=== PATIENT | male | born 1940 | race Caucasian/White ===

== ENCOUNTER → 2021-08-26 06:23 | Outpatient (CLI) | payer MEDICARE, OTHER, SELFPAY ==
--- NOTE | 2021-08-26 | DI.MRI.S_ITS ---
PROCEDURE: MR SHOULDER LT WO CON INDICATIONS: BILATERAL SHOULDER PAIN TECHNIQUE: Noncontrast oblique coronal T2 fast spin echo with fat saturation, oblique sagittal T1 spin echo and T2 fast spin echo with fat saturation, axial T1 spin echo and T2 fast spin echo with fat saturation through the shoulder. COMPARISON: [facility], MR, MR SHOULDER RT WO CON, 08/26/2021, 7:07. [facility] [place], CR, XR SHOULDER 2+ VIEWS BILATERAL, 08/18/2021, 13:54. FINDINGS: Image quality: Excellent. Rotator cuff: Tendinosis and moderate grade articular and bursal surface partial thickness tear involving distal supraspinatus and infraspinatus at their insertion on the humeral head is seen extending to musculotendinous junction. Distal subscapularis tendinosis is also noted. No full-thickness rotator cuff tendon rupture. Sagittal images demonstrate mild to moderate supraspinatus and infraspinatus muscle atrophy. Bones and bursae: Nonspecific edema and subcortical cystic changes involving posterior lateral humeral head is seen with suggestion of a subacute to chronic Hill-Sachs defect in posterior lateral humeral head. Nonspecific intraosseous cyst formation within medullary space of humeral head is also noted. No acute fracture or dislocation. Moderate acromioclavicular joint osteoarthritic changes are seen with joint space narrowing and downward osteophyte formation depressing the musculotendinous junction of supraspinatus. Moderate glenohumeral joint osteoarthritic changes also noted. Small to moderate amount of subacromial subdeltoid bursal fluid is seen. Capsule and soft tissues: Signal abnormality and contour irregularity involving anterior inferior labrum at 4 to 6 o'clock position is seen suggestive of anterior-inferior labral tear. The long head of the biceps tendinosis and low to moderate grade intrasubstance partial-thickness tear is seen. There is also medial subluxation of proximal bicipital tendon within bicipital groove The rotator interval appears normal, without fibrosis. The coracohumeral ligament is normal in thickness. IMPRESSION: 1. Tendinosis and moderate grade articular and bursal surface partial thickness tear involving distal supraspinatus and infraspinatus extending to musculotendinous junction. Distal subscapularis tendinosis. Mild to moderate supraspinatus and infraspinatus muscle atrophy. 2. 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 No acute fracture or dislocation. Moderate acromioclavicular joint and glenohumeral joint osteoarthritis. Small amount of subacromial subdeltoid bursal fluid. 3. Suggestion of anterior-inferior labral tear at 4 to 6 o'clock position consistent with a Bankart lesion. 4. Medially subluxed proximal bicipital tendon within bicipital groove with tendinosis and low to moderate grade partial-thickness tear involving proximal intra-articular portion of long head of biceps. Dictated by: Cecilio Langston M.D. on 08/26/2021 at 8:52 Approved by: Cecilio Langston M.D. on 08/26/2021 at 8:57
--- NOTE | 2021-08-26 | DI.MRI.S_ITS ---
PROCEDURE: MR SHOULDER RT WO CON INDICATIONS: BILATERAL SHOULDER PAIN TECHNIQUE: Noncontrast oblique coronal T2 fast spin echo with fat saturation, oblique sagittal T1 spin echo and T2 fast spin echo with fat saturation, axial T1 spin echo and T2 fast spin echo with fat saturation through the shoulder. COMPARISON: None. FINDINGS: Image quality: Excellent. Rotator cuff: Full-thickness rupture of distal supraspinatus and infraspinatus at their insertion on the humeral head is seen with up to 4.2 cm medial retraction of torn tendon fibers to the level of glenoid. Distal subscapularis tendinosis and low to moderate grade partial-thickness tear is seen. Sagittal images demonstrate moderate supraspinatus muscle and mild infraspinatus muscle atrophy. Bones and bursae: Moderate acromioclavicular joint and glenohumeral joint osteoarthritic changes are seen with joint space narrowing , subchondral sclerosis and inferior marginal osteophyte formation. There is no fracture or dislocation. Moderate amount of subacromial subdeltoid bursal fluid is seen. Capsule and soft tissues: Signal abnormality and contour irregularity involving superior anterior labrum at 12 to 2 o'clock position is seen consistent with superior anterior labral tear. The long head of the biceps tendon is not visualized intra-articularly. The rotator interval appears normal, without fibrosis. The coracohumeral ligament is normal in thickness. IMPRESSION: 1. Full-thickness rupture of distal supraspinatus and infraspinatus at their insertion on the humeral head with up to 4.2 cm medial retraction of torn tendon fibers to the level of glenoid. Tendinosis and moderate grade partial-thickness tear involving superior to mid fibers of distal subscapularis. Moderate supraspinatus muscle atrophy and mild infraspinatus muscle atrophy. 2. Moderate acromioclavicular joint and glenohumeral joint osteoarthritis. Moderate amount of subacromial subdeltoid bursal fluid. 3. Suggestion of superior anterior labral tear at 12 to 2 o'clock position. 4. Nonvisualization of intra-articular portion of long head of biceps concerning for proximal bicipital tendon rupture. Dictated by: Cecilio Langston M.D. on 08/26/2021 at 8:43 Approved by: Cecilio Langston M.D. on 08/26/2021 at 8:52
== END ==
PROVIDERS: PCP Internal Medicine; Referring Provider Orthopaedic Surgery; Visit Provider Orthopaedic Surgery
DX: M75.121 Complete rotator cuff tear or rupture of right shoulder, not specified as traumatic (principal); M75.112 Incomplete rotator cuff tear or rupture of left shoulder, not specified as traumatic; M19.011 Primary osteoarthritis, right shoulder; M19.012 Primary osteoarthritis, left shoulder; S46.112A Strain of muscle, fascia and tendon of long head of biceps, left arm, initial encounter; M25.511 Pain in right shoulder; M25.512 Pain in left shoulder
CPT/HCPCS: 73221